=== PATIENT | male | born 1995 | race Two or more races ===

== ENCOUNTER 2021-10-13 14:51 | Emergency (ER) | payer SELFPAY ==
[~2021-10-13] VITALS: Ht 162.6 cm; Wt 81.6 kg
[2021-10-13 14:59] VITALS: BP 139/97
== END 2021-10-13 21:15 | disposition left against medical advice (07) ==
LOC: ER 14:51
DX: S60.862A Insect bite (nonvenomous) of left wrist, initial encounter (principal); Z53.21 Procedure and treatment not carried out due to patient leaving prior to being seen by health care provider; W57.XXXA Bitten or stung by nonvenomous insect and other nonvenomous arthropods, initial encounter; Y93.89 Activity, other specified; Y92.89 Other specified places as the place of occurrence of the external cause; Y99.8 Other external cause status